=== PATIENT | male | born 1960 ===

== ENCOUNTER 2017-04-08 17:12 | Inpatient (IN) | payer OTHER, SELFPAY ==
[~2017-04-08] VITALS: Ht 185.4 cm; Wt 104.6 kg
[2017-04-08] MEDS ORDERED: LISI20 PO (17:58)
[2017-04-08 17:59] LABS: Hematocrit 28.6 % (37.0-53.0); Hemoglobin 9.4 g/dL (13.5-17.5)
[2017-04-08] MEDS ORDERED: DILT180 PO (17:59)
[2017-04-08 18:11] LABS: International Normalized Ratio 1.16; Prothrombin Time Results 12.1 Sec (9.7-11.5)
[2017-04-08 21:41] LABS: Hematocrit 27.2 % (37.0-53.0)
[2017-04-09 05:47] LABS: Hematocrit 27.3 % (37.0-53.0); Hemoglobin 8.9 g/dL (13.5-17.5)
[2017-04-09] MEDS ORDERED: Hydrochlorothia25 MG PO (06:45)
== END 2017-04-09 12:31 | disposition home or self-care (01) | DRG 395 ==
LOC: ER 17:12 → SURS 20:26
PROVIDERS: Emergency Medicine; Internal Medicine
DX: K63.9 Disease of intestine, unspecified (principal); I10 Essential (primary) hypertension; K52.9 Noninfective gastroenteritis and colitis, unspecified; R59.9 Enlarged lymph nodes, unspecified; Z87.891 Personal history of nicotine dependence
CPT/HCPCS: 36415; 74177; 85014; 85018; 85610; 85730; 86850; 86900; 86901; 93005; 93010; 96365; 96366; 99285; C9113; J7030; Q9967

== ENCOUNTER → 2017-04-08 | Outpatient (CLI) | payer OTHER, SELFPAY ==
[~2017-04-08] MED LIST: DILT180 PO; HYDR1TAB94 PO; Hydrochlorothia25 MG PO; LISI20 PO; SILD50TA PO; ZESTORETIC 20-251 EA PO
[2017-04-08 16:32] LABS: BASOPHILS ABSOLUTE AUTO 0.08 K/mm3 (0.00-0.23); BASOPHILS PERCENT AUTO 1 % (0-2); EOSINOPHILS PERCENT AUTO 1 % (0-6); Hematocrit 28.9 % (37.0-53.0); Hemoglobin 9.7 g/dL (13.5-17.5); IMMATURE GRAN ABSOLUTE AUTO 0.13 K/mm3 (0.00-0.10); IMMATURE GRAN PERCENT AUTO 1 % (0-1); LYMPHOCYTES ABSOLUTE AUTO 2.08 K/mm3 (0.84-5.20); LYMPHOCYTES PERCENT AUTO 20 % (21-46); MONOCYTES ABSOLUTE AUTO 0.83 K/mm3 (0.16-1.47); MONOCYTES PERCENT AUTO 8 % (4-13); Mean Corpuscular HGB 28.7 pg (26.0-34.0); Mean Corpuscular HGB Conc 33.6 g/dL (31.5-36.5); Mean Corpuscular Volume 86 fL (80-100); Mean Platelet Volume 11.4 fL (9.1-12.4); NEUTROPHILS PERCENT AUTO 69 % (41-73); Platelet Count 534 K/mm3 (150-400); RDW Coefficient Variation 12.6 % (11.7-14.2); RDW Standard Deviation 38.7 fL (35.1-46.3); Red Blood Cell Count 3.38 M/mm3 (4.30-5.90); White Blood Cell Count 10.52 K/mm3 (4.00-11.30)
[2017-04-08 16:53] LABS: Alanine Aminotransfer (ALT/SGP 48 U/L (12-78); Albumin/Globulin Ratio 1.2 (0.8-1.8); Alk Phos 67 U/L (40-126); Anion Gap 10 mmol/L (6-16); Aspartate Aminotrans (AST/SGOT 24 U/L (12-37); Bilirubin, Total 0.2 mg/dL (0.1-1.0); Blood Urea Nitrogen 20 mg/dL (8-24); CO2, Blood 27 mmol/L (21-32); Calcium, Blood 9.3 mg/dL (8.5-10.1); Chloride, Blood 98 mmol/L (98-108); Creatinine, Blood 1.05 mg/dL (0.60-1.20); Globulin, Blood 3.3 g/dL (2.2-4.0); Glomerular Filtration Rate >60 (60-); Glucose, Blood 109 mg/dL (70-99); Potassium, Blood 4.5 mmol/L (3.5-5.5); Sodium, Blood 135 mmol/L (136-145); Thyroid Stimulating Hormone 1.314 uIU/mL (0.360-4.800); Total Protein, Blood 7.3 g/dL (6.4-8.2)
[2017-04-08 20:22] LABS: PSA, %Free 22.2 %; PSA, Free 0.166 ng/mL; Prostate Specific Antigen 0.748 ng/mL (0.000-4.000)
== END | disposition home or self-care (01) ==
LOC: LAB EV 16:14
PROVIDERS: Physician Assistant
DX: N40.0 Benign prostatic hyperplasia without lower urinary tract symptoms (principal); R53.83 Other fatigue
CPT/HCPCS: 80053; 84153; 84154; 84443; 85025

== ENCOUNTER 2017-04-12 09:54 | Day surgery (SDC) | payer OTHER, SELFPAY ==
[~2017-04-12] VITALS: Ht 182.9 cm; Wt 104.0 kg
[~2017-04-12 09:54] MED LIST changes: -HYDR1TAB94 PO; -SILD50TA PO; -ZESTORETIC 20-251 EA PO
== END 2017-04-12 12:59 | disposition home or self-care (01) ==
LOC: ORSCSDS 09:54
PROVIDERS: Surgery
PROC: 0DJD8ZZ Inspection of Lower Intestinal Tract, Via Natural or Artificial Opening Endoscopic (ICD-10-PCS; principal; 2017-04-12 11:45)
DX: R93.3 Abnormal findings on diagnostic imaging of other parts of digestive tract (principal); I10 Essential (primary) hypertension; E78.5 Hyperlipidemia, unspecified; E66.9 Obesity, unspecified; Z68.30 Body mass index [BMI] 30.0-30.9, adult; Z79.899 Other long term (current) drug therapy
CPT/HCPCS: J7120

== ENCOUNTER 2017-05-18 12:38 | Inpatient (IN) | payer OTHER, SELFPAY ==
[~2017-05-18] VITALS: Ht 185.4 cm; Wt 109.8 kg
[2017-05-19] MEDS ORDERED: ZESTORETIC 20-251 EA PO (16:46)
[2017-05-19] MEDS ORDERED: SILD50TA PO (16:46)
[2017-05-27] MEDS ORDERED: HYDR1TAB94 PO (13:51)
== END 2017-05-27 14:30 | disposition home or self-care (01) | DRG 358 ==
LOC: SURS 05-26 07:04 → PRE IP 05-26 08:30 → SURS 05-26 10:55
PROVIDERS: Surgery
PROC: 0DBV0ZZ Excision of Mesentery, Open Approach (ICD-10-PCS; principal; 2017-05-26 08:30)
DX: K63.89 Other specified diseases of intestine (principal); E66.9 Obesity, unspecified; I10 Essential (primary) hypertension; Z68.31 Body mass index [BMI] 31.0-31.9, adult; Z79.899 Other long term (current) drug therapy; Z87.891 Personal history of nicotine dependence
CPT/HCPCS: 88309; 88341; 88342; J0295; J1100; J1170; J1885; J2250; J2405; J3010; J7030; J7120

== ENCOUNTER 2022-06-03 09:40 | Day surgery (SDC) | payer OTHER ==
[~2022-06-03] VITALS: Ht 182.9 cm; Wt 114.8 kg
[~2022-06-03 09:40] MED LIST changes: +HYDR1TAB94 PO; +SILD50TA PO; +ZESTORETIC 20-251 EA PO
[2022-06-03] MEDS ORDERED: METO100ER PO (10:12)
[2022-06-03] MEDS ORDERED: LOVASTATIN40 MG PO (10:12)
[2022-06-03] MEDS ORDERED: SPIRONOLACTONE50 MG PO (10:13)
[2022-06-03] MEDS ORDERED: METFORMIN HCL500 M3 PO (10:13)
--- NOTE | 2022-06-03 12:34 | NUR ---
PT AXOX4, ABLE TO REPOSITION SELF IN BED. REQUESTED AND TOLERATING PO FLUIDS AND FOOD. PT HAS ONE INCISION SITE ON R INGUINAL AREA COVERED WITH 4 INCHES LENGTH GAUZE AND CLEAR OPSITE THAT IS CDI. NO DRAINAGE, SWELLING, INFLAMMATION NOTED.
--- NOTE | 2022-06-03 13:05 | NUR ---
Patient up to Ambulate independently. Gait steady. Discharge instructions reviewed with patient. Patient verbalizes understanding. Copy given to patient to take home. Dressing to procedure site clean, dry, intact with no visible drainage, swelling, erythema or bruising noted. Patient States Post-Procedure ride home has been arranged. Discharged via wheelchair to private car for ride home. ALL BELONGINGS RETURNED TO PATIENT.
== END 2022-06-03 22:54 | disposition home or self-care (01) ==
LOC: ORSCMMR 09:40
PROVIDERS: Surgery
PROC: 07BH0ZX Excision of Right Inguinal Lymphatic, Open Approach, Diagnostic (ICD-10-PCS; principal; 2022-06-03 11:00)
PROC: 3E0M05Z Introduction of Adhesion Barrier into Peritoneal Cavity, Open Approach (ICD-10-PCS; principal; 2022-06-03 11:00)
PROC: 0YU50JZ Supplement Right Inguinal Region with Synthetic Substitute, Open Approach (ICD-10-PCS; principal; 2022-06-03 11:00)
DX: K40.90 Unilateral inguinal hernia, without obstruction or gangrene, not specified as recurrent (principal); C49.5 Malignant neoplasm of connective and soft tissue of pelvis; I10 Essential (primary) hypertension; E11.22 Type 2 diabetes mellitus with diabetic chronic kidney disease; I12.9 Hypertensive chronic kidney disease with stage 1 through stage 4 chronic kidney disease, or unspecified chronic kidney disease; N18.9 Chronic kidney disease, unspecified; Z87.891 Personal history of nicotine dependence; Z79.84 Long term (current) use of oral hypoglycemic drugs; Z79.899 Other long term (current) drug therapy; E66.9 Obesity, unspecified; Z68.34 Body mass index [BMI] 34.0-34.9, adult
CPT/HCPCS: 82947; 88305; A9270; C1781; J0690; J1100; J1885; J2405; J2704; J2795; J3010; J7120